=== PATIENT | female | born 1955 | race Hispanic/Latino ===

== ENCOUNTER 2016-10-11 09:18 | Day surgery (SDC) | payer OTHER ==
[~2016-10-11] VITALS: Ht 154.9 cm; Wt 70.0 kg
[~2016-10-11 09:18] MED LIST: FOLI1CAP8 PO; FOLI1TAB18 PO; FRSM80T PO; INSU100V4 SUBQ; LISI-567 PO; SEVE800T7 PO; SPIR100T3 PO; Sodium Chloride LOK Flush 10 mL Syringe IV PRN; fentaNYL-PF 50 mCg/mL 2 mL Inj IVPUSH PRN
[2016-10-11 09:59] VITALS: BP 162/72; PULSE 83; RESP 16; O2SAT 100
[2016-10-11] MEDS: 0.9% Sodium Chloride 1,000 ML IV SCH ×3 (10:00→10:57)
[2016-10-11 11:04] VITALS: BP 135/53; PULSE 74; RESP 16; O2SAT 100
[2016-10-11 11:14] VITALS: BP 128/48; PULSE 76; RESP 16; O2SAT 100
[2016-10-11 11:24] VITALS: BP 136/46; PULSE 77; RESP 16; O2SAT 100
--- NOTE | 2016-10-11 12:14 | ENDO ---
[address] [address] ENDOSCOPY PROCEDURE PATIENT: BREA BOWSER : 1955 MR#: [id number] ADMIT: 10/11/2016 JOB ID: [id number] DATE: 10/11/2016 PROCEDURE: Esophagogastroduodenoscopy. INDICATION: Anemia. The patient's ASA classification is 3. Mallampati score is 2. MEDICATIONS: 1. Versed 3 mg. 2. Fentanyl 100 mcg. INSTRUMENT USED: GIF H 190. PROCEDURE DETAILS: After informed consent was obtained, the patient was brought into the GI suite, where she was placed on oxygen via nasal cannula and monitored with continuous pulse oximeter, telemetry and blood pressure monitoring. A time-out was performed. Then, she was placed in a left lateral decubitus position and medications were administered for sedation. A bite block was placed. The EGD scope was inserted through the bite block and advanced under direct visualization to the second portion of the duodenum without difficulty. FINDINGS: 1. Normal appearing duodenal bulb, first and second portion. Multiple random biopsies were obtained. 2. Normal appearing pylorus. In the antrum and body of the stomach, the mucosa had a mosaic appearance consistent with portal gastropathy. Multiple random biopsies were obtained. 3. Retroflexed views in the gastric body revealed a normal-appearing cardia and fundus. No gastric varices were appreciated. 4. The GE junction was at approximately 35 cm and was regular. 5. Normal appearing esophagus without any esophageal varices. IMPRESSION: Portal gastropathy. Otherwise normal examination to second portion of the duodenum. RECOMMENDATIONS: Await biopsy results and proceed to colonoscopy. COMPLICATIONS: None. ESTIMATED BLOOD LOSS: Less than 5 mL. PROCEDURE PERFORMED: Colonoscopy. INDICATION: Anemia. Please see above for ASA classification, Mallampati score and medications. INSTRUMENT USED: PCF H 180 AL. PREPARATION QUALITY: Was good. PROCEDURE DETAILS: After completion of the EGD examination, a digital rectal examination was performed and unremarkable. The colonoscope was then inserted into the rectum, advanced under direct visualization to the terminal ileum which was identified by the presence of the ileocecal valve and appendiceal orifice. Once the terminal ileum was reached, the colonoscope was withdrawn back into the rectum as the mucosa and lumen were examined. In the rectum, retroflexion was performed. Following retroflexion, remaining air in the rectum was suctioned and the procedure was completed. FINDINGS: 1. In the sigmoid colon, there was a circumferential, friable, firm mass. Appearance was consistent with a neoplasm. Multiple biopsies were obtained. 2. In the transverse colon, there was an approximately 3-4 mm polyp that was removed with a cold snare. 3. In the descending colon, there were two diminutive polyps removed with cold biopsy forceps. 4. In the rectum, there was an approximately 5 mm sessile polyp that was removed with a hot snare. IMPRESSION: 1. Sigmoid mass. 2. Transverse colon polyp. 3. Descending colon polyp. 4. Rectal polyp. 5. Rose ink was injected just distal to the sigmoid tumor. RECOMMENDATIONS: 1. Await tumor biopsy results. If tumor does bar turner to be adenocarcinoma, we will plan for staging CT scan. 2. Referral to General Surgery. COMPLICATIONS: None. ESTIMATED BLOOD LOSS: Less than 10 mL.
--- NOTE | 2016-10-12 10:24 | PATH ---
SURGICAL PATHOLOGY Attending Physician:Asaf Morales CASE STATUS: Signed Out PATIENT NAME: BREA BOWSER PID: [id number] : 1955 DATE COLLECTED:10/11/2016 20:25 SPECIMEN: 1: Duodenum, Biopsy 2: Gastric, Biopsy 3: Colon, Biopsy 4: Colon, Biopsy 5: Colon, Biopsy 6: Rectum, Biopsy CLINICAL HISTORY: ANEMIA 1). DUODENUM BIOPSY 2). GASTRIC BIOPSY 3). TRANSVERSE COLON POLYP 4). DESCENDING COLON POLYP 5). SIGMOID COLON BIOPSY @ 35CM 6). RECTAL POLYP FINAL DIAGNOSIS: 1.DUODENUM BIOPSY: CHANGES CONSISTENT WITH CHRONIC DUODENITIS WITH FOCAL AREAS OF FOVEOLAR METAPLASIA. Negative for evidence of celiac disease. Negative for dysplasia and malignancy. 2.GASTRIC BIOPSIES: MILD CHRONIC GASTRITIS INVOLVING ANTRAL AND FUNDIC MUCOSA. Negative for evidence of Helicobacter. Negative for intestinal metaplasia. Negative for dysplasia and malignancy. 3.TRANSVERSE COLON POLYP: TUBULAR ADENOMA. 4.DESCENDING COLON POLYP: TUBULAR ADENOMA INVOLVING SINGLE BIOPSY FRAGMENT. 5.SIGMOID COLON BIOPSIES AT 35 CM: INFILTRATING ADENOCARCINOMA, MODERATELY-DIFFERENTIATED INVOLVING TWO BIOPSY FRAGMENTS. MISMATCH REPAIR GENE PANEL PENDING, TO BE REPORTED BY ADDENDUM. 6.RECTAL POLYP: SERRATED ADENOMA, TRADITIONAL TYPE, FOCALLY INFLAMED. ICD10 CODE C18.7 NOTE: As part of a routine senior manager quality assurance, Dr. Michael Hand has also reviewed part 5 of this case and agrees with the diagnosis. The results of this evaluation are telephoned to the office of Dr. Zackery Mahmood at 0900 on 10/12/16. GROSS DESCRIPTION: The specimen is received in six formalin filled containers labeled with the patient's name. 1). The specimen is sublabeled "duodenum" and consists of 4 portions of tissue which aggregate to 0.4 x 0.3 x 0.2 CM. The specimen is entirely submitted in cassette 1A. 2). The specimen is sublabeled "gastric" and consists of 3 portions of tissue which aggregate to 0.3 x 0.3 x 0.2 CM. The specimen is entirely submitted in cassette 2A. 3). Specimen a sublabeled "transverse colon polyp" and consists of a 0.2 x 0.2 x 0.2 CM portion of tissue which is entirely submitted in cassette 3A. 4). The specimen is sublabeled "descending colon polyp" and consists of 2 portions of tissue which aggregate to 0.3 x 0.3 x 0.3 CM. The specimen is entirely submitted in cassette 4A. 5). The specimen is sublabeled "sigmoid colon 35 CM" and consists of multiple portions of tissue which aggregate to 0.4 x 0.4 x 0.3 CM. The specimen is entirely submitted in cassette 5A. 6). The specimen is sublabeled "rectal polyp" and consists of a 0.4 x 0.4 x 0.4 CM portion of tissue which is entirely submitted in cassette 6A. 10/11/2016 DAC MICRO DESCRIPTION: See diagnosis. ICD-9 CODES: CPT CODES: 1: 29033 2: 43059 3: 25134 4: 49600 5: 19154 6: 99686, 51359, 00388, 16201, 28394 PROCEDURE/ADDENDA: Immunohistochemistry SPI Interpretation {Not Entered} Results-Comments Immunohistochemistry results (Mismatch repair gene panel): MSH2: Positive MSH6: Positive MLH1: Positive PMS2: Positive Interpretation: This positive staining for all of the mismatch repair gene antigens indicates that the tumor is negative for mismatch repair gene deletion. This test was developed and its performance characteristics determined by [facility]. It has not been cleared or approved by the U. S. Food and Drug Administration. The FDA has determined that such clearance or approval is not necessary. This test is used for clinical purposes. It should not be regarded as investigational or for research. Electronically Signed Out Robbi Lieberman MD Electronically Signed Out Robbi Lieberman MD [facility] Pathology [facility] [address], [place] [address] Technical component performed at [facility], [address], [place], [address]
[2016-11-03] MEDS ORDERED: METO25TA6 PO (13:19)
[2016-11-03] MEDS ORDERED: ATOR20TA PO (13:19)
[2016-11-03] MEDS ORDERED: GABA-500 PO (13:19)
[2016-11-03] MEDS ORDERED: OMEP40CA36 PO (13:19)
[2017-01-23] MEDS ORDERED: INSU100V7 SUBQ (09:24)
[2017-01-23] MEDS ORDERED: OMEP40CA36 PO (09:24)
[2017-01-23] MEDS ORDERED: METO25TA6 PO (09:24)
== END 2016-10-11 23:59 | disposition home or self-care (01) ==
LOC: END 09:18
PROVIDERS: ATTEND Internal Medicine Gastroenterology
DX: C18.7 Malignant neoplasm of sigmoid colon (principal); D12.3 Benign neoplasm of transverse colon; D12.4 Benign neoplasm of descending colon; D12.8 Benign neoplasm of rectum; K29.80 Duodenitis without bleeding; K29.50 Unspecified chronic gastritis without bleeding; N18.6 End stage renal disease; D63.1 Anemia in chronic kidney disease; K70.9 Alcoholic liver disease, unspecified; B18.2 Chronic viral hepatitis C; E11.3499 Type 2 diabetes mellitus with severe nonproliferative diabetic retinopathy without macular edema, unspecified eye; Z99.2 Dependence on renal dialysis
CPT/HCPCS: 43239; 45381; 45385; 99153; G0500; J2250; J7030

== ENCOUNTER 2016-11-17 08:47 | Day surgery (SDC) | payer OTHER ==
[~2016-11-17] VITALS: Ht 154.9 cm; Wt 69.8 kg
[~2016-11-17 08:47] MED LIST changes: +0.9% Sodium Chloride 1,000 ML IV SCH; +GABA-500 PO
[2016-11-17 10:08] VITALS: BP 159/65; PULSE 72; O2SAT 100
[2016-11-17 10:41] VITALS: BP 149/58; PULSE 77; RESP 16; O2SAT 100
--- NOTE | 2016-11-17 13:27 | ENDO ---
[address] [address] ENDOSCOPY PROCEDURE PATIENT: BREA BOWSER : 1955 MR#: [id number] ADMIT: 11/17/2016 JOB ID: [id number] DATE: 11/17/2016 PREOPERATIVE DIAGNOSIS(ES): Sigmoid colon cancer. POSTOPERATIVE DIAGNOSIS(ES): Descending colon cancer. OPERATION: Flexible sigmoidoscopy. SURGEON: Pedro Pablo Hickey MD. INDICATIONS: The patient is a 61-year-old female recently diagnosed with a sigmoid colon cancer. I have recommended that I perform a flexible sigmoidoscopy in order to have a better feel for the location of the tumor. FINDINGS: The tumor was located between 50 and 55 cm from the anal verge. The tattooing was identified. No other distal polyps were identified. Retroflexed views of the rectum were normal. DESCRIPTION OF PROCEDURE: The procedure was discussed with the patient, and it was elected to perform it without sedation and she tolerated it well. A digital rectal examination was performed. The Olympus PCF H 180 AL videocolonoscope was passed transanally, advanced to the tumor which again was measured between 50 and 55 cm. The scope was withdrawn. Retroflexed views were obtained. No biopsies were taken. No complications. The patient tolerated the procedure well. IMPRESSION: Descending colon cancer. The patient will return for a final scheduling of her colectomy.
[2017-01-23] MEDS ORDERED: METO25TA6 PO (09:24)
[2017-01-23] MEDS ORDERED: OMEP40CA36 PO (09:24)
[2017-01-23] MEDS ORDERED: INSU100V7 SUBQ (09:24)
== END 2016-11-17 23:59 | disposition home or self-care (01) ==
LOC: END 08:47
PROVIDERS: ATTEND Surgery
DX: C18.7 Malignant neoplasm of sigmoid colon (principal); E11.22 Type 2 diabetes mellitus with diabetic chronic kidney disease; N18.6 End stage renal disease; E11.319 Type 2 diabetes mellitus with unspecified diabetic retinopathy without macular edema; E11.51 Type 2 diabetes mellitus with diabetic peripheral angiopathy without gangrene; D53.9 Nutritional anemia, unspecified; B18.2 Chronic viral hepatitis C; F15.21 Other stimulant dependence, in remission; F10.21 Alcohol dependence, in remission; Z99.2 Dependence on renal dialysis; Z95.1 Presence of aortocoronary bypass graft; Z79.4 Long term (current) use of insulin; Z86.010 Personal history of colon polyps
CPT/HCPCS: 45330; J2250; J3010; J7030

== ENCOUNTER 2016-11-29 05:31 | Day surgery (SDC) | payer OTHER ==
[~2016-11-29] VITALS: Ht 154.9 cm; Wt 71.4 kg
[~2016-11-29 05:31] MED LIST changes: -0.9% Sodium Chloride 1,000 ML IV SCH; +Lactated Ringer's 1,000 ML IV SCH; -Sodium Chloride LOK Flush 10 mL Syringe IV PRN; -fentaNYL-PF 50 mCg/mL 2 mL Inj IVPUSH PRN
[2016-11-29] MEDS ORDERED: 0.9% Sodium Chloride 500 ML IV ONE (05:35)
[2016-11-29] MEDS ORDERED: CeFAZolin Inj 2 GM in IV Premix 1 EACH IV ONE (06:00)
[2016-11-29] MEDS ORDERED: Insulin LISPRO 300 Unit/3 mL Inj ONE (06:53)
[2016-11-29 07:32] LABS: Mean Corpuscular Hemoglobin 30.3 pg (27.0-35.0); Mean Corpuscular Volume 92.3 fL (81-100)
--- NOTE | 2016-11-29 07:57 | PCM.ANEPRE ---
Anesthesia Pre-Op Review Reason for Review: Morning of surgery evaluation. Anesthesia Recommendations: Delay until Additional Data Obtain Additional Comments 61 year-old patient with multiple comorbidities including ESRD, hepC/cirrhosis, PVD and poorly controlled DM. Upon auscultation of her chest, I noted a harsh IV/ systolic murmur. Her last echo was in November of 2011 and was notable for an EF>70%, no LVOT, but moderate to severe mitral annular calcification (no sig. MS) and RV systolic pressure estimates of 35-40 mmHg. Given the long period of time since her last echo, her functional status, and findings on exam , I think it prudent to quantify her valvular narrowing and determine if it is more hemodynamically significant at this time as this could alter management. Therefore I think an echocardiogram and cardiology consultation are warranted for this needed surgery. Brandon Thornton MD Nov 29, 2016 07:57
[2017-01-23] MEDS ORDERED: OMEP40CA36 PO (09:24)
[2017-01-23] MEDS ORDERED: METO25TA6 PO (09:24)
[2017-01-23] MEDS ORDERED: INSU100V7 SUBQ (09:24)
== END 2016-11-29 23:59 | disposition home or self-care (01) ==
LOC: SAS 05:31
PROVIDERS: ATTEND Surgery
DX: C18.7 Malignant neoplasm of sigmoid colon (principal); E11.65 Type 2 diabetes mellitus with hyperglycemia; K74.69 Other cirrhosis of liver; E11.319 Type 2 diabetes mellitus with unspecified diabetic retinopathy without macular edema; N18.6 End stage renal disease; E11.51 Type 2 diabetes mellitus with diabetic peripheral angiopathy without gangrene; Z99.2 Dependence on renal dialysis; Z79.4 Long term (current) use of insulin; Z79.899 Other long term (current) drug therapy

== ENCOUNTER 2017-01-24 06:51 | Inpatient (IN) | payer OTHER, MEDICAID ==
[~2017-01-24] VITALS: Ht 154.9 cm; Wt 74.1 kg
[2017-01-24] VITALS (19 sets, daily range): BP systolic 166–217; BP diastolic 52–79; PULSE 65–90; RESP 13–24; O2SAT 97–100
[2017-01-24] MEDS: Lactated Ringer's 1,000 ML IV SCH ×2 (05:00→09:38)
[~2017-01-24 06:51] MED LIST changes: +CeFAZolin Inj 2 GM in IV Premix 1 EACH IV ONE; -INSU100V4 SUBQ; +INSU100V7 SUBQ; -LISI-567 PO; -Lactated Ringer's 1,000 ML IV SCH; +METO25TA6 PO; +OMEP40CA36 PO; -SPIR100T3 PO
--- NOTE | 2017-01-24 09:02 | PCM.HPANE ---
Patient Data Surgeon Admitting Provider: Attending Provider:Pedro Pablo Hickey MD Primary Care Physician:Brandon Steele MD Other Provider:Samson Pacheco Anesthesia Reason for Visit Sigmoid Colon Cancer Ht/WT & BMI Height (Feet): 5 Height (Inches): 1.00 Weight (Kilograms): 71.100 Body Mass Index 29.00 Allergies Coded Allergies: latex (Verified Allergy, Intermediate, rash, 01/24/17) hydromorphone (Verified Allergy, Mild, itchy, 01/24/17) levofloxacin (Verified Allergy, Mild, Rash,Itching,, 01/20/15) Uncoded Allergies: ADHESIVE TAPE (Adverse Reaction, Unknown, Rash, 01/20/15) Past Anesthesia History Anesthesia History: Denies:: Abnormal Airway, Anesthesia Reactions, Difficult Intubation, Fam Anesthesia Reaction, Fam Malignant Hypertherm, Malignant Hyperthermia Diabetes History Hx Diabetes?: Yes Type of Diabetes: Type II Glycemic Control: Insulin Dependent Current Bedside Blood Glucose: 214 MRSA MRSA: No Medications Hypertension Medication: Yes Home Meds Incl Beta Renata: Yes Date Beta Renata Taken: January 24, 2017 Time Beta Renata Taken: 814 Reported Medications Omeprazole 40 Mg Capsule.dr40 Mg PO BID Ref 0 01/23/17 Metoprolol Tartrate 25 Mg Mtikld62 Mg PO BID 30 Days Ref 0 01/23/17 Insulin Glargine (Lantus U100 Insulin Vial)100 Unit/Ml Vial15 Unit SUBQ BID #1 VIAL Ref 0 01/23/17 Gabapentin 100 Mg Fpwkiaq572 Mg PO HS 30 Days Ref 0 11/03/16 Folic Acid/Vitamin B Comp W-C (Renal Caps Softgel)1 Mg Capsule1 Mg PO DAILY 10/10/16 Sevelamer Carbonate (Renvela)800 Mg Aomftn362 Mg PO TID 90 Days 01/20/15 Furosemide 80 Mg Tab80 Mg PO BID 30 Days Ref 0 monday,,monday,monday01/20/15 Folic Acid 1 Mg Tablet1 Mg PO BID 30 Days 01/20/15 Discontinued Reported Medications Spironolactone 100 Mg Zthnsx677 Mg PO BID #30 TABLET Ref 0 10/10/16 Lisinopril 20 Mg Hfwjzn72 Mg PO BID 30 Days Ref 0 10/10/16 Insulin Detemir (Levemir U100 Insulin Vial)100 Unit/1 Ml Vial25 Unit SUBQ BID- INSULIN #1 VIAL Ref 0 01/20/15 History History of ENT Problems?: No HEENT History: Denies:: Abnormal Airway Cataracts Difficult Intubation Dysphagia Hearing Problem Sinus Problem Denture Type: None Teeth Condition: No Teeth Hx of Heart Problems?: Yes Cardiovascular History: Positive for:: Edema Hypertension Denies:: AICD Atrial Fibrillation Cardiac Surgery Chest Pain Congestive Heart Failure Heart Murmur Irregular Heartbeat Pacemaker Thrombophlebitis Valvular Heart Disease (heart murmur echo 12/09- ef 65-70%) Other Cardiac History: recent cardiac clearance per Dr Moreno Other History/Comments Cardiac ROS negative, cardiac clearance obtained prior to OR Hx of Respiratory Problem?: No Respiratory History: Denies:: Asthma COPD Cough Hemoptysis Oxygen Administration Pneumonia Tuberculosis Use of C-PAP Machine Hx Neurologic Problems?: No Neurological History: Denies:: CVA Dementia Multiple Sclerosis Parkinson's Disease Seizures Hx of GI Problems?: Yes Gastrointestinal History: Positive for:: Gastroesphageal Reflux Heartburn Other GI Pertinent History: sigmoid colon cancer current admission problem Hx of Problems?: Yes Genitourinary History: Positive for:: HX of Hemodialysis (Mon in [place]) Denies:: Kidney Stones Urinary Tract Infection HX of Peritoneal Dialysis: No Other History/Comment ESRD on [facility] dialysis, fistula on the left upper arm Female Hx: Denies:: Currently Endometriosis Pelvic Inflammatory Problems with Breasts? Skin History: Denies:: History Skin Disorders? Pressure Ulcers Hx Musculoskeletal Problems?: No Musculoskeletal History: Denies:: Back Injury Joint Replacement Musculoskeletal Trauma Hx of Psycho/Social Problems?: No Psycho Social History: Denies:: Anxiety Hx Depression Hx Surgeries?: Yes (dialysis fistula LUarm, hernia repair partial foot amputation, bypass in le) Hx Any Other Health Problems?: Yes Other History: Positive for:: Cancer (sigmoid colon current admission problem) Hospitalization Thyroid Disease Denies:: Endocrine Disease History Blood Transfusions: Denies:: Blood Transfuse Reaction Blood Transfusions Hx Diabetes: YesBedside Blood Glucose: 214 Hx Alcohol Use: NoHx Substance Use: No (past hx alcohol, methamphetamine use) Smoking Status: Former Smoker Have You Smoked inLast 12 mo: No Stop/Bang Treated for Sleep Apnea?: No Do You Have a CPAP Machine?: No P-Blood Pressure: treated: Yes B- Body Mass Index > 35 kg/m2: No A- Age over 50: Yes N- Neck Large Circumference: No G- Gender Male: No Risk Assessment Category Category 1A: Patient has history of documented sleep apnea, and HAS NOT received any narcotic, sedative or anesthesia administration during this stay. Category 1B: Patient has history of documented sleep apnea, and HAS received any narcotic , sedative or anesthesia administration during this stay Category 2: Patient has SUSPECTED Obstructive Sleep Apnea, and HAS received any narcotic , sedative or anesthesia administration during this stay. Category 3: Patient has SUSPECTED Obstructive Sleep Apnea and HAS NOT received narcotic, sedative or anesthesia administration during this stay. Category 4: Outpatient in Procedural Areas with known sleep apnea or who screen positive for High Risk via the STOP/BANG questionnaire. Exam Exam Vital Signs Vital Signs Date Time Temp Pulse Resp B/P Pulse Ox O2 Delivery O2 Flow Rate FiO2 01/24/17 07:16 36.5 90 13 186/59 100 Room Air General Appearance: Alert, Oriented X3, Cooperative HEENT/AIRWAY: MP 2 Lungs: Clear to Auscultation, Normal Air Movement Heart: Exam Unremarkable, Regular Rate/Rhythm Meds/Labs/Diagnostics Bedside Blood Glucose: 214 Labs Test 01/24/17 07:40 Potassium Level 4.0mEq/L (3.5-5.2) Plan Impression Patient chart reviewed, patient interviewed and anesthestic plan with risks, benefits, and alternatives discussed, and informed consent obtained. ASA Physical Status: ASA4 Life Threatening Anesthetic Plan: GA Bene/Risks/Altern/Consents: Yes HP Complete Prior to Induction: Yes Pedro Vicente MD January 24, 2017 09:02
[2017-01-24] MEDS ORDERED: metroNIDAZOLE 500 mg/100 mL NS Premix IV ONE (10:15)
[2017-01-24] MEDS ORDERED: Insulin Human REGular Inj 100 UNIT in 0.9% Sodium Chloride-Pha MIX 100 ML IV SCH (10:45)
[2017-01-24] MEDS ORDERED: Bupivacaine-MPF 0.5% 30 mL Inj INFILTRATE ONE (11:04)
[2017-01-24] MEDS ORDERED: 0.9% Sodium Chloride 1,000 ML IV ONE ×2 (11:31→13:53)
[2017-01-24] MEDS ORDERED: Insulin Human REGular Inj 100 UNIT in 0.9% Sodium Chloride-Pha MIX 100 ML IV ONE (11:50)
[2017-01-24] MEDS ORDERED: Dextrose 5% 1,000 ML IV PRN (12:00)
[2017-01-24] MEDS ORDERED: Bupivacaine Liposome 1.3% 20 mL Inj ONE (13:32)
[2017-01-24] MEDS: Dextrose 5% 0.9% NaCl 1,000 ML IV SCH (14:28)
[2017-01-24] MEDS ORDERED: MeTOProlol 1 mg/mL 5 mL Inj ONE (14:29)
[2017-01-24] MEDS ORDERED: Neostigmine 1 mg/mL 10 mL Inj ONE (14:29)
[2017-01-24] MEDS ORDERED: Glycopyrrolate 0.2 MG/ML 1mL Inj ONE (14:29)
[2017-01-24] MEDS ORDERED: Succinylcholine Chloride 20 mg/mL 5 mL Inj ONE (14:29)
[2017-01-24] MEDS ORDERED: Propofol 10,000 mCg/mL 20 mL Inj ONE (14:29)
[2017-01-24] MEDS ORDERED: fentaNYL-PF 50 mCg/mL 2 mL Inj ONE (14:29)
[2017-01-24] MEDS ORDERED: Ondansetron 2 mg/mL 2 mL Inj ONE (14:29)
[2017-01-24] MEDS ORDERED: Phenylephrine/NS-PF 100 mCg/mL 5 mL Syringe IVPUSH ONE (14:29)
[2017-01-24] MEDS ORDERED: MetoCLOpramide 5 mg/mL 2 mL Inj IVPUSH PRN ×2 (14:30→14:45)
[2017-01-24] MEDS: Acetaminophen IV 1,000 MG in IV Premix 1 EACH IV SCH ×2 (14:30→19:31)
[2017-01-24] MEDS ORDERED: Ondansetron 2 mg/mL 2 mL Inj IVPUSH PRN ×2 (14:30→14:45)
[2017-01-24] MEDS ORDERED: oxyCODONE-Acetamin 5-325 mg Tablet PO PRN (14:30)
--- NOTE | 2017-01-24 14:32 | PCM.ANEP1 ---
Post Anesthesia Phase 1 PACU Phase 1 Assessment Vital Signs Vital Signs Date Time Temp Pulse Resp B/P Pulse Ox O2 Delivery O2 Flow Rate FiO2 01/24/17 07:16 36.5 90 13 186/59 100 Room Air Anesthetic Administered: GA Level of Alertness: Awake, talking CARSON's with Equal Strength: Yes Pain: No Nausea or Vomiting: No Cardiovascular Function and Hy: Yes Oxygen Delivery: Room Air Lungs: Clear to Auscultation, Normal Air Movement Dermatome Level: Full Sensation Complications: No Comments FS 168 insuin infusion to 1.35 u/ hr Pedro Vicente MD January 24, 2017 14:32
[2017-01-24] MEDS ORDERED: HYDROmorphone 1 mg/mL Inj IVPUSH PRN (14:45)
[2017-01-24] MEDS ORDERED: Lactated Ringer's 500 ML IV PRN (14:45)
[2017-01-24] MEDS ORDERED: Dexamethasone 4 mg/mL Inj IVPUSH PRN (14:45)
[2017-01-24] MEDS ORDERED: fentaNYL-PF 50 mCg/mL 2 mL Inj IVPUSH PRN (14:45)
[2017-01-24] MEDS ORDERED: Lactated Ringer's 1,000 ML IV SCH (14:45)
[2017-01-24] MEDS ORDERED: Phenylephrine 10,000 mCg/mL Inj IVPUSH PRN (14:45)
[2017-01-24] MEDS ORDERED: EPHEDrine Sulfate 50 mg/mL Inj IVPUSH PRN (14:45)
--- NOTE | 2017-01-24 15:13 | OP ---
[address] [address] OPERATIVE REPORT PATIENT: BREA BOWSER : 1955 MR#: [id number] ADMIT: 01/24/2017 JOB ID: [id number] DATE OF SURGERY: 01/24/2017 PREOPERATIVE DIAGNOSIS(ES): 1. Sigmoid colon cancer. 2. Insulin-dependent diabetes mellitus. 3. End-stage renal failure on dialysis. 4. Hepatitis C. 5. Splenomegaly. POSTOPERATIVE DIAGNOSIS(ES): 1. Sigmoid colon cancer. 2. Insulin-dependent diabetes mellitus. 3. End-stage renal failure on dialysis. 4. Hepatitis C. 5. Splenomegaly. PROCEDURES: 1. Rigid sigmoidoscopy. 2. Laparoscopic sigmoid colectomy with anastomosis. 3. Laparoscopic mobilization of Splenic Flexure SURGEON: Pedro Pablo Hickey M.D. CHIEF SUSTAINABILITY OFFICER: Mariam Porras. INDICATIONS: The patient is a 61-year-old female with multiple severe advanced comorbidities. Her ASA classification was 4. She developed rectal bleeding and was found to have a sigmoid colon cancer. She was previously scheduled for her operation but it was postponed by anesthesia requiring a cardiology consult which ultimately cleared her for surgery. After discussing options with the patient, it was elected to proceed with placement of ureteral catheters as she is still making urine by Dr. Webb and then a laparoscopic sigmoid colectomy. FINDINGS: There was no evidence of metastatic disease. The tumor was in the proximal sigmoid colon and there was no evidence of metastatic disease. There is no evidence of tumor implants or ascites or hepatic metastases. Several small nodes could be visualized within the mesentery because of tattooing. The anastomosis was tested and there was no evidence of an anastomotic leak. DESCRIPTION OF PROCEDURE: At the beginning and end of the operation, the SCOAP checklist was completed. A general endotracheal anesthetic was induced. She received preoperative antibiotics. She had been on the impact nutritional supplementation preoperatively. She had oral antibiotics and a bowel preparation. Her glucose was over 200 when she came to Day Surgery. At the start of the operation, an insulin drip was initiated and followed carefully by Dr. Lebron Vicente. Dr. Marie Webb placed ureteral stents. Please see her operative report for details. She was in the lithotomy position. A sigmoidoscopy was performed. There was minimal stool remaining in her rectum. I then placed a catheter with a 30 cc balloon in the rectum. The catheter was Silastic. Using ChloraPrep she was prepped and draped in the usual fashion. She had had a previous umbilical hernia repair, a right subcostal incision for cholecystectomy and she also had a right lower quadrant incision. I elected to gain access to the abdominal cavity through a left upper quadrant Veress needle. This was done atraumatically and then through the same site, a 5 mm optical port was placed. I initially then placed an additional 5 mm port in the left lower quadrant and she had adhesions to the anterior abdominal wall involving omentum and these were taken down with the LigaSure. After the anterior adhesions were taken down, again all involved only omentum, then I placed a 5 mm port just below her umbilical hernia incision and one in the right lower quadrant, one in the left lower quadrant. She was placed in the Trendelenburg position rotated to the right. Small bowel was brought out of the pelvis. The sigmoid colon was retracted laterally to the anterior abdominal wall in the left lower quadrant and I was able to identify the tattooing. I initially started with a medial lateral approach. The mesentery was scored, but through this approach I was unable to identify the ureter. Without mobilizing the sigmoid colon, I have reflected it medially but then could feel the ureteral stent. Staying medial to that, I opened up the retroperitoneum and then clearly identified the left ureter which was preserved throughout the dissection. I then started dividing the sigmoid colon mesentery near its base taking small pieces at a time with triple applications of the energy device. I selected a distal point for resection which was still on the sigmoid colon, but on the distal sigmoid colon. The colon was elevated anteriorly and I was able to dissect the mesentery off the posterior wall of the sigmoid colon and then with a single application of an Endo-LEYLA 60 mm load with visceral rustam, I was able to fire a staple line across the distal sigmoid colon. Then by elevating the sigmoid colon, I then slowly mobilized the sigmoid colon well beyond the tattooing to where I estimated I had 10-14 cc of proximal colon and I had about that much distally as well. I also mobilized the descending colon up to and around the splenic flexure. After dividing the mesentery, I then elected to make a short lower midline incision and then to bring the sigmoid colon out, complete the division and then complete the anastomosis. After making the incision, a wound protector was placed. Before opening the lower midline, I placed an atraumatic grasper on the distal end of the sigmoid colon and on the proximal end. The descending colon was then exposed by dividing the mesentery right up to it and then I divided it with a LEYLA vascular load. There was no tension on the anastomosis which was then completed in an end-to-side fashion with an inner row of interrupted 3-0 Vicryl and an outer row of interrupted 3-0 silk. There was no fecal contamination. I occluded the colon proximal to the anastomosis and through the Silastic catheter placed earlier, air was infused into the colon until it was distended. There was no evidence of an anastomotic leak. The colon was then reintroduced to the abdominal cavity. Gloves and instruments were changed. The midline fascia was closed with running 0 looped Maxon. The abdomen was reinflated. There was some blood that accumulated laterally. I aspirated this and there was no further accumulation. There was no evidence of a splenic injury. I then placed a tap block with a total of 20 cc of liposomal bupivacaine under direct visualization and that was the equally placed on both sides. The right lower quadrant 5 mm trocar had been upstaged to a 12 mm trocar to accommodate the stapler. This trocar site was closed with 0-Vicryl. The abdomen was deflated and all trocars were removed. The subcutaneous tissue in the lower midline incision was closed with running 3-0 Vicryl. All skin incisions were closed with subcuticular 4-0 Vicryl. Steri-Strips, sterile dressings were applied. Estimated blood loss 40 cc. There are no apparent complications. The ureteral stents were removed at the end of the operation. The final sponge, needle and instrument counts were announced as correct and she was returned to the recovery room in stable condition. Critical assistance provided by LUÍS Rae
[2017-01-24 15:26] LABS: BASOPHILS % (AUTO) 0.2 % (0-3); EOSINOPHILS % (AUTO) 0.9 % (0-5); MONOCYTES % (AUTO) 3.8 % (4-12); Mean Corpuscular Hemoglobin 30.2 pg (27.0-35.0); Mean Corpuscular Volume 96.9 fL (81-100); Platelet Count 150 bil/L (150-400)
[2017-01-24] MEDS ORDERED: Dextrose 5% 0.9% NaCl 1,000 ML IV ONE (17:12)
[2017-01-24] MEDS: Insulin Human REGular Inj 100 UNIT in 0.9% Sodium Chloride-Pha MIX 100 ML IV SCH (17:13)
[2017-01-24] MEDS ORDERED: Labetalol 5 mg/mL 4 mL Inj IVPUSH PRN (19:35)
[2017-01-24] MEDS: Heparin 5,000 Unit/mL Inj SUBQ SCH (22:45)
[2017-01-24] MEDS: Pantoprazole 40 mg ER24 Tablet PO SCH (22:45)
[2017-01-25] VITALS (8 sets, daily range): BP systolic 120–162; BP diastolic 57–69; PULSE 65–82; RESP 15–20; O2SAT 98–100
[2017-01-25] MEDS: Acetaminophen IV 1,000 MG in IV Premix 1 EACH IV SCH ×4 (01:44→20:19)
[2017-01-25 04:13] LABS: BASOPHILS % (AUTO) 0.3 % (0-3); EOSINOPHILS % (AUTO) 1.5 % (0-5); MONOCYTES % (AUTO) 10.4 % (4-12); Mean Corpuscular Hemoglobin 30.3 pg (27.0-35.0); Mean Corpuscular Volume 96.5 fL (81-100); NEUTROPHILS % (AUTO) 75.1 % (40-74); Platelet Count 150 bil/L (150-400)
[2017-01-25] MEDS: Pantoprazole 40 mg ER24 Tablet PO SCH ×2 (06:00→20:20)
[2017-01-25] MEDS: Heparin 5,000 Unit/mL Inj SUBQ SCH ×3 (06:00→20:20)
[2017-01-25] MEDS: Dextrose 5% 0.9% NaCl 1,000 ML IV SCH ×2 (06:01→13:01)
[2017-01-25] MEDS: Vitamin B Complex/Vit C Tablet PO SCH (08:27)
--- NOTE | 2017-01-25 08:40 | OP ---
[address] [address] OPERATIVE REPORT PATIENT: BREA BOWSER : 1955 MR#: [id number] ADMIT: 01/24/2017 JOB ID: [id number] DATE OF SURGERY: 01/24/2017 PROCEDURE NAME: Cystoscopy with right-sided and also left-sided ureteral catheter or ureteral stent placement. SURGEON: Marie Webb M.D. ANESTHESIA: General. PREOPERATIVE DIAGNOSIS(ES): Stents requested by General Surgery for aid in ureteral localization during abdominal surgery. POSTOPERATIVE DIAGNOSIS(ES): Stents requested by General Surgery for aid in ureteral localization during abdominal surgery. INDICATIONS: The patient is a 61-year-old woman on the schedule with Dr. Pedro Pablo Hickey for a large abdominal surgery. General Surgery requesting placement of ureteral catheters to aid in identification of the ureters for purposes of protecting them during their dissection. PROCEDURE IN DETAIL: After appropriate informed consent was obtained, the patient was brought to the operating room. She received IV antibiotics as per General Surgery. SCDs were placed. Adequate general anesthesia induced. She was carefully placed in the dorsal lithotomy position. All pressure points carefully padded. Cleaned, prepped, and draped in the usual sterile fashion. Rigid scope was introduced into her bladder. Both ureteral orifices were located and noted to be in orthotopic position. Bladder was grossly normal in appearance. We cannulated first the left ureteral orifice with a guidewire. This was advanced under fluoroscopic guidance into good position of the kidney. We then advanced a 5-Nepali open-ended catheter over this into good position. The wire itself was removed. Scope was withdrawn leaving the catheter in place. We then turned to the left side where the same procedure was performed. The ureteral orifice was cannulated with a guidewire which was advanced under fluoroscopic guidance into good position and then the ureteral catheter was advanced three quarters of the way up the ureter over the wire. The wire itself was removed and the catheters were allowed to drain into a Hamilton catheter which was placed by Urology. The patient tolerated this portion of the procedure very well. There was no bleeding notable and this completes the Urology portion of the case. Please see Dr. Pedro Pablo Hickey's dictation for the full operative report.
--- NOTE | 2017-01-25 10:54 | PROG NOTE ---
[address] [address] PROGRESS NOTE PATIENT: BREA BOWSER : 1955 MR#: [id number] ADMIT: 01/24/2017 JOB ID: [id number] DATE: 01/25/2017 SUBJECTIVE: Postoperative day one following laparoscopic sigmoid colectomy. The patient says she is doing very well. She has minimal to no pain. She passed a small amount of mucus or liquid per rectum. She has no nausea or vomiting. PHYSICAL EXAMINATION: Weight 78.9 kg. Temperature 36.8, brachial blood pressure 150/69, pulse 74, respiratory rate 16, O2 sat on 2 L is 100%. HEENT: She is blind. Lungs: Clear. Cardiac exam: Regular rhythm. Abdomen is flat, soft. Dressing is dry. Urine output 200 cc overnight. LABORATORY RESULTS: White blood cell count 3.9, hematocrit is 27.4, platelet count 150,000. Potassium is 4.3, glucose 128 on an insulin infusion. IMPRESSION: Surgically doing well. Dr. Booth has been consulted for dialysis. PLANS: 1. Remove her Hamilton catheter. 2. Dialysis as determined by Dr. Booth. 3. Ambulate. 4. Continue ERAS protocol.
[2017-01-25] MEDS: Polyethylene Glycol (PEG) 17 Gm Powder PO SCH (12:09)
[2017-01-25] MEDS: Insulin Human REGular Inj 100 UNIT in 0.9% Sodium Chloride-Pha MIX 100 ML IV SCH (13:02)
--- NOTE | 2017-01-25 13:58 | CONS ---
[address] [address] CONSULTATION REPORT PATIENT: BREA BOWSER : 1955 MR#: [id number] ADMIT: 01/24/2017 JOB ID: [id number] DATE OF SERVICE: 01/25/2017 NEPHROLOGY CONSULTATION: REQUESTING PHYSICIAN: Dr. Pedro Pablo Hickey. REASON FOR CONSULTATION: Management of end-stage renal disease. 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 The procedure performed yesterday by Dr. Pedro Pablo iHckey. The procedure was uneventful. There were no immediate complications afterwards. Her blood pressure was stable throughout the night. She has no fever overnight. The patient was able to finish her liquid diet this morning. Renal was consulted to resume dialysis while she is in the hospital. She is the patient of Dr. Leon Forde. She has been on dialysis for a number of years. PAST MEDICAL HISTORY: 1. End-stage renal disease on hemodialysis every Monday, Monday and Monday. 2. Type 2 diabetes complicated by diabetic retinopathy and nephropathy. 3. Hypertension with hypertensive nephrosclerosis. 4. Anemia of chronic kidney disease. 5. Renal osteodystrophy. 6. Colorectal cancer. 7. Peripheral vascular disease status post femoropopliteal bypass graft and angioplasty. 8. Liver cirrhosis. 9. Chronic hepatitis C infection. PAST SURGICAL HISTORY: 1. Status post laparoscopic sigmoidectomy performed by Dr. Pedro Pablo Hickey on January 24, 2017. 2. Status post left AV fistula creation. 3. Femoropopliteal bypass graft on the right lower extremity. 4. Status post right transmetatarsal amputation. 5. Repair of abdominal wall hernia. FAMILY HISTORY: Positive for colon cancer in her family. Her mother was diagnosed and of colon cancer at age 46. SOCIAL HISTORY: The patient had history of alcohol abuse. The last drink was in the . The patient denies current use of alcohol, tobacco or illicit drugs. ALLERGIES: LEVOFLOXACIN and PERCOCET. REVIEW OF SYSTEMS: Fourteen point review of system was performed. PHYSICAL EXAM: Vitals: Temperature 36.8, pulse 74, respiratory rate 16, blood pressure 150/69, O2 sat 100% on 2 L nasal cannula. General appearance: Awake, alert and oriented x3. No acute distress. Legally blind. HEENT: Mild pallor. No jaundice. No JVD. No lymphadenopathy. No thyroid enlargement. Heart: Regular rhythm. Normal S1, S2. Systolic murmur noted. Abdomen: Soft. Decreased bowel sounds. Mild tenderness on the surgical incision. No chest pain. No hepatosplenomegaly. Extremities: No significant edema on the lower extremities. Status post right transmetatarsal amputation. Left AV fistula with good thrill. LABORATORY: Sodium 140, potassium 4.3, chloride 97, bicarb 25, BUN 50, creatinine 5.33. WBC 3.9, hemoglobin 8.6, platelets 150. ASSESSMENT: 1. End-stage renal disease on hemodialysis. 2. Colorectal cancer status post laparoscopic sigmoid colectomy with anastomosis on January 24, 2017. 3. Type 2 diabetes with diabetic retinopathy and nephropathy. 4. Hypertension with hypertensive nephrosclerosis. 5. Peripheral vascular disease. 6. Hypertension. 7. Anemia of chronic kidney disease. 8. Renal osteodystrophy. PLAN: 1. The patient will proceed with hemodialysis today for 3 hours. Ultrafiltration as tolerated. 2. Continue her phosphate binders and antihypertensive medications. 3. Hamilton catheter to be removed if okay with Dr. Hickey. Thank you for allowing me to participate in the care of your patient. We will monitor along with you.
[2017-01-26] VITALS (8 sets, daily range): BP systolic 138–180; BP diastolic 64–74; PULSE 65–80; RESP 12–18; O2SAT 95–99
[2017-01-26] MEDS: Acetaminophen IV 1,000 MG in IV Premix 1 EACH IV SCH ×2 (02:59→08:26)
[2017-01-26 04:05] LABS: BASOPHILS % (AUTO) 0.7 % (0-3); EOSINOPHILS % (AUTO) 6.5 % (0-5); MONOCYTES % (AUTO) 8.2 % (4-12); Mean Corpuscular Volume 97.9 fL (81-100); Platelet Count 149 bil/L (150-400)
[2017-01-26] MEDS: Heparin 5,000 Unit/mL Inj SUBQ SCH ×3 (05:05→21:39)
[2017-01-26] MEDS: Dextrose 5% 0.9% NaCl 1,000 ML IV SCH (05:57)
[2017-01-26] MEDS: Pantoprazole 40 mg ER24 Tablet PO SCH ×2 (05:59→21:38)
[2017-01-26] MEDS: Vitamin B Complex/Vit C Tablet PO SCH (08:22)
[2017-01-26] MEDS: Insulin GLARgine 100 Unit/mL Syringe SUBQ SCH ×2 (10:11→21:42)
[2017-01-26] MEDS: Polyethylene Glycol (PEG) 17 Gm Powder PO SCH (10:22)
--- NOTE | 2017-01-26 11:35 | PROG NOTE ---
[address] [address] PROGRESS NOTE PATIENT: BREA BOWSER : 1955 MR#: [id number] ADMIT: 01/24/2017 JOB ID: [id number] DATE: 01/26/2017 SUBJECTIVE: The patient is postoperative day two following her laparoscopic sigmoid colectomy. She is having bowel movements. She is tolerating food. She denies significant abdominal pain, which is being controlled simply with intravenous Tylenol. She was dialyzed yesterday. PHYSICAL EXAMINATION: Alert, in no distress. As previously, she is blind from her diabetes. Temperature 36.9, brachial blood pressure 178/70, pulse 70, respiratory rate 12, O2 sat is 99%. Abdomen is flat. Incisions are doing well. LABORATORY RESULTS: White blood cell count 2.9, hematocrit is 27.4, which is stable, platelet count 149,000, which is stable. Potassium is 3.9, glucose 108. Pathology report pending. IMPRESSION: Doing well. PLAN: 1. Will stop her insulin infusion, restart her home insulin and provide sliding scale. 2. She will ambulate. 3. Saline lock her IV. 4. Stop intravenous acetaminophen and switched to oral. 5. Probably will be able to be discharged tomorrow after dialysis.
[2017-01-26] MEDS: Insulin Human REGular 300 Unit/3 mL Inj SUBQ SCH ×2 (14:54→21:41)
[2017-01-27 00:05] VITALS: BP 158/65; PULSE 60; RESP 16; O2SAT 100
[2017-01-27] MEDS: Insulin Human REGular 300 Unit/3 mL Inj SUBQ SCH ×2 (02:30→08:15)
[2017-01-27 03:50] VITALS: BP 135/61; PULSE 53; RESP 16; O2SAT 100
[2017-01-27] MEDS: Pantoprazole 40 mg ER24 Tablet PO SCH (05:57)
[2017-01-27] MEDS: Heparin 5,000 Unit/mL Inj SUBQ SCH ×2 (05:57→13:00)
[2017-01-27 08:00] VITALS: PULSE 65
[2017-01-27] MEDS: Vitamin B Complex/Vit C Tablet PO SCH (08:12)
[2017-01-27 08:15] VITALS: BP 157/67; PULSE 65; RESP 18; O2SAT 100
[2017-01-27 08:27] VITALS: BP 173/66; PULSE 69
[2017-01-27] MEDS: Insulin GLARgine 100 Unit/mL Syringe SUBQ SCH (08:46)
--- NOTE | 2017-01-27 10:57 | PCM.PNSURG ---
Subjective Date of Service: January 27, 2017 Visit Information: Reason for Visit Sigmoid Colon Cancer Surgery/Surgery Date Post-Op Day #3 Date of Admission: January 24, 2017 at 18:00 Hospital Day # Subjective: The patient was seen and examined while undergoing dialysis. Eating solid foods with no nausea or vomiting. Diarrhea has resolved, no bowel movement this morning but continues to pass flatus. Pain well controlled on oral Tylenol and gabapentin. Ambulatory in the hallway yesterday with assistance. Anticipating discharge from the hospital today. Postop General: No Complaints Gastrointestinal: Tolerating Oral Feedings, No N/V, Passing Flatus, Passing Stool (yesterday and the day before) Pain Management: PO Postop Activity: Ambulate with Assist Objective Vital Sign- Last 8 Hours Date Time Temp Pulse Resp B/P Pulse Ox O2 Delivery O2 Flow Rate FiO2 01/27/17 08:15 36.7 65 18 157/67 100 Room Air 01/27/17 08:00 65 01/27/17 03:50 36.6 53 16 135/61 100 Room Air Intake and Output- Last 8 Hour 01/27/17 Cumulative From/Thru 07:00 01/23/17 09:13 - 01/27/17 04:34 Intake Total 300 ml 5440 ml Output Total 600 ml 4145 ml Balance -300 ml 1295 ml Intake Oral 300 ml 1820 ml IV Total 3620 ml Output Urine Total 200 ml 705 ml Urine/Stool Mix 400 ml 400 ml Ultrafiltrate 3000 ml Estimated Blood Loss 40 ml # Voids 1 # Bowel Movements 1 15 General: Alert, Cooperative, No Acute Distress Lungs: Clear to Auscultation Heart: Regular Rate/Rhythm, No Murmurs/Rubs/Gallops Abdomen: Soft, Appropriately tender, Non-distended SURGICAL WOUND : Wound General Appearence: Steri Strips, Sutures, No Erythema, No Discharge, Wound under dressing Extremities: Thigh&Calf Soft/Nontender Neuro: Normal Speech Catheters: None Result Diagram: 01/26/17 0355 01/26/17 0355 Additional Information: Blood sugars well-controlled since insulin infusion was discontinued yesterday. Assessment & Plan Impression Primary diagnoses: Sigmoid colon cancer. POD #3 with return of bowel function. Stable for discharge following hemodialysis. Other chronic conditions: 1. Chronic liver disease and cirrhosis 2. Type II diabetes mellitus X line 3. Hepatitis C 3. Very severe nonproliferative diabetic retinopathy blind 4. End-stage renal disease on hemodialysis 5. Anemia of chronic disease 6. Peripheral vascular disease 7. Splenomegaly Problems: Plan The patient will be discharged to home after completion of hemodialysis today. She will follow-up in the office with Dr. Pedro Pablo Hickey in 10-14 days. Pain Management: Oral Tylenol Gabapentin VTE Prophylaxis: Sub-Q Heparin (Unfractionated) Resuscitation Status: DNR/DNI:Do Not Resuscitate/Intubate copies to: Brandon Steele MD; Gloria Doherty MD, Fred H PA-C January 27, 2017 10:57
--- NOTE | 2017-01-27 11:04 | PCM.DISURG ---
Surgical Discharge Instruction Date of Service January 27, 2017 Dates of Hospitalization Date of Hospital Admission January 24, 2017 at 18:00 Providers Admitting Physician: Pedro Pablo Hickey MD Primary Care Physician: Brandon Steele MD Attending Physician: Pedro Pablo Hickey MD Discharge Diagnosis Discharge Diagnosis Primary diagnoses: Sigmoid colon cancer. Other chronic conditions: 1. Chronic liver disease and cirrhosis 2. Type II diabetes mellitus X line 3. Hepatitis C 3. Very severe nonproliferative diabetic retinopathy blind 4. End-stage renal disease on hemodialysis 5. Anemia of chronic disease 6. Peripheral vascular disease 7. Splenomegaly Post Operative diagnosis Same Diet Discharge Diet: Diabetic, Renal Diet Activity Discharge Activity-General: Balance rest and activity, Activity as energy allows Dressing and Incisional Care Dressing Care: Allow Steri Stripes to fall off, Remove outer dressing after 24 hrs Hygiene: May shower Follow Up Plan Follow-up Provider (F9): Pedro Pablo Hickey MD Follow-up appointment: Days (10-14) Call your provider for: Fever, Chills, Increasing abdominal pain, Nausea, Vomiting, Wound redness, Increasing wound pain, Warmth to touch, Discharge @ incision, pus discharge Dieudonne Lowery PA-C January 27, 2017 11:04
[2017-01-27] MEDS ORDERED: OXYC1TAB24 PO (11:06)
--- NOTE | 2017-01-27 11:09 | PCM.DC.SUR ---
Discharge Summary Date of Service: January 27, 2017 Date of Hospital Admission: January 24, 2017 at 18:00 Date of Operation(s): 01/24/2017 01/24/2017 Date of Discharge: 01/27/2017 Diagnosis at Time of Discharge Primary diagnoses: Sigmoid colon cancer. Other chronic conditions: 1. Chronic liver disease and cirrhosis 2. Type II diabetes mellitus X line 3. Hepatitis C 3. Very severe nonproliferative diabetic retinopathy blind 4. End-stage renal disease on hemodialysis 5. Anemia of chronic disease 6. Peripheral vascular disease 7. Splenomegaly Problems: Operation 1.Cystoscopy with right-sided and also left-sided ureteral catheter or ureteral stent placement. 2. A. Rigid sigmoidoscopy. B. Laparoscopic sigmoid colectomy with anastomosis. C. Laparoscopic mobilization of Splenic Flexure Brief History and Physical: The patient is a 61 year old woman and was seen in consultation for Drs. Rosa Isela Doherty and Sachin Sparks for a new diagnosis of sigmoid colon cancer. Her primary care physician is Brandon Steele M.D. [facility]. She had anemia which led to an upper endoscopy and the colonoscopy. The colonoscopy revealed multiple benign polyps with tubular adenomas of the transverse colon descending colon and rectum but an adenocarcinoma of the sigmoid colon. The sigmoid colon cancer was tattooed. Mismatch repair enzyme proteins were expressed making Mitchell syndrome unlikely. Her mother of colon cancer at age 46. No siblings have colon cancer only to have had colonoscopies reportedly without polyps. She had a CT scan of her abdomen and pelvis that showed no evidence of metastasis. But she did have an enlarged spleen. It measured 18 cm. 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 She does have a history of hepatitis C and a problem list states cirrhosis. No evidence of cirrhosis was seen on her CT scan which was reviewed with Dr. Marsha Krueger about her having varicosities and portal hypertension leading to splenomegaly but there was no evidence of that on her CT scan. Also Dr. Sparks specifically did not mention varicosities in his endoscopy report. But he wondered if she has portal gastropathy. Her CEA is 5.3. Her INR is 1.0. Her mother had colon cancer. Consultants: Nephrology Hospital Course: The patient was admitted and underwent the above-mentioned operations without complication. Postsurgically the ERAS protocol was initiated. She was having bowel movements by her second postsurgical day and was stable for discharge on her third postsurgical day following dialysis. Insulin infusion was discontinued on the second postsurgical day in the patient's home maintenance insulin was instituted, blood sugars were within normal limits on her third postsurgical day. Pathology: Pending Disposition: The patient was discharged to home on her third postsurgical day at which time her wounds were intact and dry, she was tolerating pain on oral Tylenol and gabapentin, she had completed dialysis, she was ambulating with assistance, and her bowels were working. Follow-up Plan: She will follow-up in the office with Dr. Hickey in 10-14 days. Folic Acid (Folic Acid) 1 Mg Tablet 1 MG PO BID (Reported) Folic Acid/Vitamin B Comp W-C (Renal Caps Softgel) 1 Mg Capsule 1 MG PO DAILY ( Reported) Furosemide (Furosemide) 80 Mg Tab 80 MG PO BID (Reported) monday,,monday,monday Gabapentin (Gabapentin) 100 Mg Capsule 200 MG PO HS (Reported) Insulin Glargine (Lantus U100 Insulin Vial) 100 Unit/Ml Vial 15 UNIT SUBQ BID ( Reported) Metoprolol Tartrate (Metoprolol Tartrate) 25 Mg Tablet 25 MG PO BID (Reported) Omeprazole (Omeprazole) 40 Mg Capsule.dr 40 MG PO BID (Reported) Sevelamer Carbonate (Renvela) 800 Mg Tablet 800 MG PO TID (Reported) oxyCODONE-Acetaminophen 5-325 mg (oxyCODONE-Acetaminophen 5-325 mg) 1 Each Tablet 1-2 TAB PO Q4H PRN PRN For Pain copies to: Sachin Mahmood MD; Brandon Steele MD; Gloria Doherty MD; Chirag Forde MD; Shen Moreno MD, Fred H PA-C January 27, 2017 11:09
--- NOTE | 2017-01-27 12:26 | PCM.PNNEPH ---
Subjective Date of Service January 27, 2017 Subjective Doing well, seen during HD, likely d/c home after HD. Exam Vital Signs Vital Sign - Last Date Time Temp Pulse Resp B/P Pulse Ox O2 Delivery O2 Flow Rate FiO2 01/27/17 08:27 69 01/27/17 08:15 36.7 18 157/67 100 Room Air 01/25/17 12:15 2.00 Intake and Output 01/26/17 01/26/17 01/27/17 Cumulative From/Thru 15:00 23:00 07:00 01/23/17 09:13 - 01/27/17 04:34 Intake Total 560 ml 300 ml 5440 ml Output Total 100 ml 600 ml 4145 ml Balance 460 ml -300 ml 1295 ml Intake Oral 560 ml 300 ml 1820 ml IV Total 3620 ml Output Urine Total 100 ml 200 ml 705 ml Urine/Stool Mix 400 ml 400 ml Ultrafiltrate 3000 ml Estimated Blood Loss 40 ml # Voids 1 1 # Bowel Movements 11 1 15 Exam General appearance: Awake, alert and oriented x3. No acute distress. Legally blind. HEENT: Mild pallor. No jaundice. No JVD. No lymphadenopathy. No thyroid enlargement. Heart: Regular rhythm. Normal S1, S2. Systolic murmur noted. Abdomen: Soft. Active bowel sounds. Mild tenderness on the surgical incision. Extremities: No significant edema on the lower extremities. Status post right transmetatarsal amputation. Left AV fistula with good thrill. Lab and Diagnostics Result Diagram: 01/26/17 0355 01/26/17 0355 Plan Impression 1. End-stage renal disease on hemodialysis Q MWF. 3 hr, 3K, 35HCO3, DFR 600 BFR 400 AVF, Revaclear, UF 1-2L. 2. Colorectal cancer status post laparoscopic sigmoid colectomy with anastomosis on January 24, 2017. 3. Type 2 diabetes with diabetic retinopathy and nephropathy. 4. Hypertension with hypertensive nephrosclerosis. 5. Peripheral vascular disease. 6. Hypertension. 7. Anemia of chronic kidney disease. 8. Renal osteodystrophy. Plan: Per renal perspective, pt can be d/c'd home. F/u with her primary director of child welfare services as OP. Thank you for the consultation. May Booth MD January 27, 2017 12:26
--- NOTE | 2017-01-27 16:14 | PATH ---
SURGICAL PATHOLOGY Attending Physician:Kamar Baron CASE STATUS: Signed Out PATIENT NAME: BREA BOWSER PID: [id number] : 1955 DATE COLLECTED:01/24/2017 00:00 SPECIMEN: Colon, Segment Resection, Non-Tumor CLINICAL HISTORY: COLON CANCER 1). SIGMOID COLON SUTURE PROXIMAL FINAL DIAGNOSIS: 1.SIGMOID COLON, SIGMOIDECTOMY: INVASIVE ADENOCARCINOMA, MODERATELY-DIFFERENTIATED, PLEASE SEE CAP SUMMARY DATA BELOW. CAP Cancer Case Summary Specimen: Sigmoid colon Procedure: Sigmoidectomy Tumor Site: Sigmoid colon Tumor Size: 3.0 CM Macroscopic Tumor Perforation: Not identified. Histologic Type: Adenocarcinoma Histologic Grade: Low Grade (moderately-differentiated) Microscopic Tumor Extension: Tumor invades through muscularis propria into subserosal adipose tissue, but does not extend to serosal surface. Margins: Uninvolved by invasive carcinoma. Proximal Margin: Uninvolved by invasive carcinoma. Distal Margin: Uninvolved by invasive carcinoma. Circumferential (Radial) Margin: Uninvolved by invasive carcinoma. Treatment Effect: No prior treatment. Lymph-Vascular Invasion: Not identified. Perineural Invasion: Not identified. Tumor Deposits: Not identified. Pathologic Staging (AJCC 7th ed., 2010) Primary Tumor: pT3 Regional Lymph Nodes: pN1b Number of Lymph Nodes Examined: 19 Number of Lymph Nodes Involved: 2 ICD10 code C18.7 NOTE: The prior biopsy ([id number] part 5) showed intact nuclear expression of mismatch repair proteins, MLH1, MSH2, MSH6 and PMS2 in the carcinoma. GROSS DESCRIPTION: Specimen received in formalin, labeled "sigmoid colon". Specimen consists of a segment of bowel measuring 20 cm in length by 2.8 cm in diameter oriented at one end by a suture marking proximal margin. Specimen is partially surrounded by yellow fibroadipose pericolonic fat measuring 18.0 x 10.0 x 4.5 cm. The serosal surface shows a retracted area measuring 1.0 cm and it is 6 cm to the proximal margin and 10 cm to the distal margin. The remainder of the serosal surface is light phillip. Mucosal surface shows a circumferential, ulcerated lesion measuring 3.0 cm in diameter and it is 6.0 cm to the proximal margin and 8.0 cm to the distal margin. The mass is corresponding to the retracted area on the serosal surface. The remainder of the mucosal surface is phillip, partially flattened. No other masses or lesions are grossly identified. The wall measures 0.3 to 0.4 cm in maximum thickness. The mass measures 1.0 cm in maximum depth invading through these wall into the pericolonic fat. The mass is 7.5 cm to the radial resection margin. [employer] sections submitted as follows: cassettes A and B-proximal margin; cassette C and D-distal margin; cassette E-radial margin; cassettes F-K-mass in relation to the deep margin; cassette L-mass in relation to adjacent colonic mucosa; cassette M-mass in relation to adjacent colonic mucosa; N-risk control field representative section from uninvolved colonic mucosa. Twenty-one possible lymph nodes are identified within the pericolonic fat. These possible lymph nodes submitted as follows: cassette O-four possible lymph nodes; P-four possible lymph nodes; Q-one possible lymph node, bisected; R-one possible lymph node, bisected; S-one possible lymph node, bisected; T-one possible lymph node, bisected; U-one possible lymph node, bisected, V-one possible lymph node, bisected; W-one possible lymph node, bisected; cassette X-one possible lymph node, serially sectioned; cassette Y-one possible lymph node, bisected; cassette Z-one possible lymph node, bisected; cassette AA-one possible lymph node, bisected; cassette AB-one possible lymph node, bisected; cassettes AC, AD, AE and AF-risk control field representative section from blood vessels identified within the pericolonic fat. ([id number]) MICRO DESCRIPTION: See diagnosis. ICD-9 CODES: CPT CODES: 1: 82393 Electronically Signed Out Maci Carter MD [facility] Pathology [facility] [address], [place] [address] Technical component performed at [facility], [facility] [address], [place], [address]
== END 2017-01-27 14:30 | disposition home or self-care (01) | DRG 329 ==
LOC: SAS 06:51 → PCC 18:00
PROVIDERS: ADMIT Surgery; ATTEND Surgery
PROC: 0DTN4ZZ Resection of Sigmoid Colon, Percutaneous Endoscopic Approach (ICD-10-PCS; principal; 2017-01-24 09:30)
PROC: 0DJD8ZZ Inspection of Lower Intestinal Tract, Via Natural or Artificial Opening Endoscopic (ICD-10-PCS; 2017-01-24 09:30)
PROC: 5A1D00Z (ICD-10-PCS; 2017-01-25)
PROC: 5A1D00Z (ICD-10-PCS; 2017-01-27)
DX: C18.7 Malignant neoplasm of sigmoid colon (principal); N18.6 End stage renal disease; I12.0 Hypertensive chronic kidney disease with stage 5 chronic kidney disease or end stage renal disease; E11.21 Type 2 diabetes mellitus with diabetic nephropathy; Z79.4 Long term (current) use of insulin; Z99.2 Dependence on renal dialysis; B19.20 Unspecified viral hepatitis C without hepatic coma; R16.1 Splenomegaly, not elsewhere classified; E11.51 Type 2 diabetes mellitus with diabetic peripheral angiopathy without gangrene; E11.319 Type 2 diabetes mellitus with unspecified diabetic retinopathy without macular edema; D63.1 Anemia in chronic kidney disease; H54.0 Blindness, both eyes; K74.60 Unspecified cirrhosis of liver